=== PATIENT | female | born 1940 | race Caucasian/White ===

== ENCOUNTER 2017-07-07 13:33 | Outpatient (CLI) | payer MEDICARE ==
[2017-07-07 14:42] LABS: Hemoglobin A1c 5.8 % (4.0-6.0)
[2017-07-07 14:47] LABS: ALT (SGPT) 11 U/L (8-55); AST (SGOT) 17 U/L (5-34); Albumin 3.7 g/dL (3.4-4.8); Alkaline Phosphatase 52 U/L (40-150); Anion Gap 16 mmol/L (10-20); BUN (Urea Nitrogen) 31 mg/dL (9.8-20.1); Bilirubin, Total 0.7 mg/dL (0.2-1.2); Calc. Creatinine Clearance 0 mL/min (70-130); Calcium 9.4 mg/dL (7.8-10.44); Carbon Dioxide 26 mmol/L (23-31); Chloride 96 mmol/L (98-107); Estimated GFR-MDRD 40; Globulin 2.9 g/dL (2.4-3.5); Potassium 4.3 mmol/L (3.5-5.1); Protein, Total 6.6 g/dL (6.0-8.3); Sodium 134 mmol/L (136-145)
[2017-07-07 17:34] LABS: Glucose 58 mg/dL (83-110)
== END 2017-07-07 13:34 | disposition home or self-care (01) ==
LOC: MADLAB 13:33
PROVIDERS: ATTEND Internal Medicine Cardiovascular Disease
DX: I10 Essential (primary) hypertension (principal); E11.9 Type 2 diabetes mellitus without complications
CPT/HCPCS: 36415; 80053; 83036

== ENCOUNTER 2017-09-14 12:52 | Emergency (ER) | payer MEDICARE ==
[2017-09-14 13:18] LABS: Bilirubin Negative (Negative); Blood, Urine Negative (Negative); Clarity Clear (Clear); Glucose, Urine (Dipstick) Negative (Negative); Leukocyte Negative (Negative); Nitrite Negative (Negative); Protein, Urine (Dipstick) Negative (Neg-Trace); Urobilinogen 0.2 mg/dL (0.2-1.0); pH, Urine 6.5 (5.0-9.0)
--- NOTE | 2017-09-14 14:59 | CT ---
CT BRAIN NONCONTRAST: DATE: 09/14/2017 HISTORY: A 77-year-old female, status post acute head trauma from fall. FINDINGS: There is diffuse brain parenchymal volume loss. There is a small focal hypodensity in the left dheeraj etal centrum semiovale. There are small old infarctions at the posterior-inferior aspect of the lef t cerebellar hemisphere. There is diffuse brain parenchymal volume loss. There is swelling and mod erately high attenuation in the left parietal scalp. No mass effect, midline shift, hydrocephalus, acute intraaxial or extraaxial hemorrhage, or any extr aaxial fluid collection. IMPRESSION: 1. Acute, traumatic superficial soft tissue contusion of the left parietal scalp. 2. 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 3. Small old left parietal deep white matter lacunar infarction. 4. Diffuse age-related involutional changes of the brain. 5. No acute intracranial findings. JNR POS: [facility]
--- NOTE | 2017-09-14 15:03 | RAD ---
CHEST PA AND LATERAL: HISTORY: A 77-year-old female with chest pain following an injury. The patient fell earlier today after her doctor's office and struck her head. FINDINGS: Postop midline sternotomy. Cardiomegaly with bilateral vascular congestion and some minimal interst itial edema, and probably small left pleural effusion, raising concern for congestive heart failure. There are healed left rib fractures, as well as some extensive deformity of the proximal humerus o n the left side, which is stable. IMPRESSION: 1. Evidence for congestive heart failure with cardiomegaly, vascular congestion, some interstitial edema, and probable left pleural effusion. 2. Left hemidiaphragm elevation. 3. Old left rib fractures and left proximal humerus deformity. POS: [facility]
--- NOTE | 2017-09-14 15:16 | RAD ---
LEFT SHOULDER THREE VIEWS: HISTORY: There is a very markedly abnormal appearing humeral head and neck with considerable loss of overall bony volume with some severe associated deformity. This appearance, however, has not significantly changed from an 07/13/2017 study. Conceivably this could be residual from extensive old trauma and/ or prior osteonecrosis. There are secondary arthrosis changes of the glenohumeral joint. I cannot demonstrate any overt acute fracture or dislocation. FINDINGS: 1. Very markedly abnormal humeral head, humeral neck, and proximal humerus, stable from 07/13/2017 study. 2. Secondary glenohumeral joint arthrosis. 3. No evidence for an acute fracture. POS: [facility]
== END 2017-09-14 14:15 | disposition home or self-care (01) ==
LOC: MADERS 12:52
DX: S00.03XA Contusion of scalp, initial encounter (principal); G47.30 Sleep apnea, unspecified; G47.00 Insomnia, unspecified; E11.9 Type 2 diabetes mellitus without complications; I11.0 Hypertensive heart disease with heart failure; I50.9 Heart failure, unspecified; E78.5 Hyperlipidemia, unspecified; F41.8 Other specified anxiety disorders; Z79.82 Long term (current) use of aspirin; Z79.899 Other long term (current) drug therapy; W18.09XA Striking against other object with subsequent fall, initial encounter
CPT/HCPCS: 70450; 71020; 81003; 87086

== ENCOUNTER 2019-02-21 11:41 | Emergency (ER) | payer MEDICARE ==
--- NOTE | 2019-02-21 12:29 | RAD ---
FPortable upright frontal chest radiograph: 02/21/2019 COMPARISON: 07/13/2017 HISTORY: Shortness of breath, heart failure FINDINGS: There is abnormal sclerosis involving the proximal left humerus with flattening of the left humeral head, similar when compared to the 2017 examination. Electronic generator overlies the mid left lung. The cardiac silhouette is enlarged. There is new pulmonary vascular congestion and perihilar intersti tial prominence. There is dense opacity in the left base suggesting left lower lobe consolidation/col lapse and left pleural fluid. The degree of this opacity may be on the basis of soft tissue attenuati on. PA and lateral imaging of the chest could better assess the left base. IMPRESSION: Prominent cardiac silhouette with pulmonary vascular congestion and perihilar interstitia l prominence. Findings suggest pulmonary edema. Dense opacity in the left base as detailed above. Fol low-up PA and lateral imaging of the chest following treatment suggested.
[2019-02-21 12:32] LABS: #Basophils 0.1 thou/uL (0.0-0.2); #Eosinphils 0.1 thou/uL (0.0-0.7); #Lymphocytes 0.7 thou/uL (1.20-3.40); #Monocytes 0.9 thou/uL (0.11-0.59); %Basophils 1.2 % (0.0-1.0); %Eosinophils 0.5 % (0.0-10.0); %Lymphocytes 6.7 % (21.0-51.0); %Monocytes 8.2 % (0.0-10.0); %Neutrophils 83.4 % (42.0-75.0); Hemoglobin 14.9 g/dL (12.0-16.0); Mean Corpuscular HGB CONC 30.1 g/dL (32.0-36.0); Mean Corpuscular Hemoglobin 29.1 pg (27.0-31.0); Mean Corpuscular Volume 96.7 fL (78.0-98.0); Mean Platelet Volume 8.4 fL (7.4-10.4); Platelet Count 125 thou/uL (130-400); RBC Distribution Width 15.5 % (11.5-14.5); Red Blood Cell (RBC) Count 5.11 mill/uL (4.20-5.40); White Blood Cell (WBC) Count 10.8 thou/uL (4.8-10.8)
[2019-02-21 12:38] LABS: Bilirubin Negative (Negative); Blood, Urine Moderate (Negative); Clarity Clear (Clear); Glucose, Urine (Dipstick) Negative (Negative); Leukocyte Negative (Negative); Nitrite Negative (Negative); Protein, Urine (Dipstick) Trace mg/dL (Neg-Trace); Specific Gravity, Urine 1.015 (1.005-1.030); Urobilinogen 0.2 mg/dL (0.2-1.0); pH, Urine 6.5 (5.0-9.0)
[2019-02-21 12:40] LABS: Bacteria/HPF Rare-Few HPF (None Seen); Squamous Epithelial 0-3 HPF (0-3)
[2019-02-21 12:44] LABS: RBC/HPF 0-3 HPF (0-3)
[2019-02-21 12:45] LABS: WBC/HPF 0-3 HPF (0-3)
[2019-02-21 12:52] LABS: ALT (SGPT) 14 U/L (8-55); AST (SGOT) 28 U/L (5-34); Albumin 3.7 g/dL (3.4-4.8); Alkaline Phosphatase 77 U/L (40-150); Anion Gap 18 mmol/L (10-20); BUN (Urea Nitrogen) 26 mg/dL (9.8-20.1); CK (CPK) 90 U/L (29-168); Calc. Creatinine Clearance 0 mL/min (70-130); Calcium 9.7 mg/dL (7.8-10.44); Carbon Dioxide 35 mmol/L (23-31); Chloride 90 mmol/L (98-107); Estimated GFR-MDRD 43; Globulin 3.8 g/dL (2.4-3.5); Glucose 127 mg/dL (83-110); Magnesium 1.1 mg/dL (1.6-2.6); Potassium 4.4 mmol/L (3.5-5.1); Protein, Total 7.5 g/dL (6.0-8.3); Sodium 139 mmol/L (136-145)
[2019-02-21] MEDS ORDERED: Nitroglycerin 2% Ointment 1 INCH/1 GM Packet ONE (13:10)
[2019-02-21] MEDS ORDERED: Furosemide 40 MG/4 ML VIAL ONE (13:10)
--- NOTE | 2019-02-21 13:10 | CT ---
FNoncontrast enhanced images chest. HISTORY: shortness of breath, left lower lobe infiltrate or pneumonia. Noncontrast enhanced CT of the chest demonstrates bilateral pleural effusions larger on the left than on the right. Areas of left lower lobe atelectasis with some component of consolidation present in t he left lower lobe. Sternotomy wires seen. There is atherosclerotic calcifications of the aorta and coronary arteries. Old healed left rib fractures seen. Heterogeneous calcified mass is seen in the right thyroid lobe. Correlate with thyroid sonography to further characterize. IMPRESSION: 1: Bilateral pleural effusions with left lower lobe areas of atelectasis and/or consolidation. 2: Right thyroid lobe calcified lesion. Malignancy cannot be excluded. Correlate with thyroid sonogra phy.
[2019-02-21 13:11] LABS: CKMB 7.9 ng/mL (0-6.6)
[2019-02-21] MEDS ORDERED: Sodium Chloride 0.9% 250 ML 250 ML ONE (13:18)
[2019-02-21] MEDS ORDERED: Aspirin 325 MG TAB ONE (13:18)
[2019-02-21] MEDS ORDERED: cefTRIAXone\\ROCEPHIN 1 GM VIAL ONE (13:18)
[2019-02-21] MEDS ORDERED: Azithromycin 500 MG VIAL ONE (13:18)
[2019-02-21 13:29] LABS: INR-International Normal Ratio 1.2; PTT 28.2 SEC (22.9-36.1); Prothrombin Time 15.4 SEC (12.0-14.7)
[2019-02-21] MEDS ORDERED: Heparin 5,000 UNITS/ML VIAL ONE (13:44)
[2019-02-21] MEDS ORDERED: Heparin 10,000 UNITS/ 10 ML VIAL ONE (13:44)
[2019-02-21] MEDS ORDERED: Heparin 25,000 units/D5W 500 ML ONE (13:46)
== END 2019-02-21 14:35 | disposition short-term general hospital (02) ==
LOC: MADERS 11:41
DX: I21.4 Non-ST elevation (NSTEMI) myocardial infarction (principal); J81.0 Acute pulmonary edema; I48.91 Unspecified atrial fibrillation; J18.9 Pneumonia, unspecified organism; G47.00 Insomnia, unspecified; E11.9 Type 2 diabetes mellitus without complications; E78.5 Hyperlipidemia, unspecified; I11.0 Hypertensive heart disease with heart failure; M10.9 Gout, unspecified; Z79.899 Other long term (current) drug therapy; Z79.82 Long term (current) use of aspirin; Z79.84 Long term (current) use of oral hypoglycemic drugs
CPT/HCPCS: 36415; 71045; 71250; 80053; 81003; 81015; 82550; 82553; 83735; 83880; 84484; 85025; 85610; 85730; 93005; 96365; 96368; 96375; J0456; J0696; J1644; J1940; J7050